=== PATIENT | male | born 1950 | race American Indian/Alaskan Native ===

== ENCOUNTER 2017-11-16 07:35 | Day surgery (SDC) | payer OTHER ==
[~2017-11-16 07:35] MED LIST: NACL 0.9% 1000 ML 1,000 ML ONE; XYLOCAINE MPF 2% ONE
[2017-11-16] MEDS ORDERED: WATER FOR IRRIG STERILE IR ONE (07:54)
[2017-11-16] MEDS ORDERED: WATER FOR IRRIG STERILE ONE (07:54)
--- NOTE | 2017-11-16 08:07 | Anesthesia Consultation ---
Anesthesia Consult and Med Hx Date of service: 11/16/17 - Airway Anesthetic Teeth Evaluation: Good ROM Head & Neck: Adequate Mental/Hyoid Distance: Adequate Mallampati Class: Class I Intubation Access Assessment: Good - Pulmonary Exam CTA: Yes - Cardiac Exam Cardiac Exam: RRR - Pre-Operative Health Status ASA Pre-Surgery Classification: ASA2 Proposed Anesthetic Plan: MAC - Pulmonary Hx Smoking: No Hx Asthma: No - Cardiovascular System Hx Hypertension: Yes - Endocrine Hx Non-Insulin Dependent Diabetes: No
--- NOTE | 2017-11-16 08:08 | Anesthesia Day of Surgery ---
Anesthesia Day of Surgery - Day of Surgery Patient Examined: Yes Patient H&P Reviewed: Yes Patient is NPO: Yes
[2017-11-16] MEDS ORDERED: NACL 0.9% 1000 ML 1,000 ML IV SCH (09:00)
[2017-11-16] MEDS ORDERED: DIPRIVAN 10 MG/ML IV ONE ×2 (09:44)
[2017-11-16] MEDS ORDERED: XYLOCAINE 2% INFILTRATI ONE (09:44)
--- NOTE | 2017-11-16 10:44 | Post Anesthesia Evaluation ---
- Post Anesthesia Evaluation Patient Participated: Yes Airway Patent: Yes Stable Respiratory Function: Yes Nausea/Vomiting: No Temp > 96.8F: Yes Pain Manageable: Yes Adequeate Hydration: Yes Anesthesia Complications: No Block Receding Appropriately: Not Applicable Patient on Ventilator: No
--- NOTE | 2017-11-16 10:46 | Operative Report ---
Operative Report Operative Report: Date of procedure: 11/16/2017 Procedure: Colonoscopy with Snare polypectomy, Multiple Hot Biopsy Polypectomies , Ablation of multiple polyps and submucosal injection. Attending physician: Brandon Donovan M.D. Director Of Accounting: Brandon Donovan M.D. Indication: Patient is a 67-year-old male who presents for screening colonoscopy. This colonoscopy serves to evaluate patient so that treatment may be directed based on the findings. Consent: Informed consent was obtained after advising the patient and family regarding nature of this procedure, its indications, potential benefits as well as possible complications including but not limited to bleeding perforation and adverse reaction to medication, infection as well as other cardiopulmonary complications. An informed written and verbal consent was then obtained after due opportunity was provided for questions and answers. Monitoring: Patient was monitored continuously with pulse oximetry and electrocardiographic recordings as well as blood pressure recordings. Vital signs remained stable throughout this procedure with no untoward events. Preoperative assessment: Patient was assessed immediately prior to this procedure for capacity to tolerate monitored anesthesia care and moderate sedation as well as general anesthesia. Patient's ASA classification is 2, Mallampati class is 2, Hyomental distance is 3. Instrument: Delivery Hero video colonoscope. Medications: Propofol given intravenously in divided doses. For details please refer to anesthesia records. Description of procedure: Patient was placed in the left lateral decubitus position after achieving sedation, a digital rectal examination was performed following which the colonoscope was introduced into the anal verge and advanced to the cecum which was identified by the cecal valve, the appendiceal orifice, as well as by the cecal strap and direct transillumination. The colonoscope was subsequently withdrawn with careful inspection of all mucosal surfaces. Patient tolerated this procedure well and was subsequently taken to the recovery room. The following findings were noted. Findings: Patient had a broad-based flat polyp seen in the cecum measuring about 1-1.5 cm. This was elevated with submucosal injection of saline and removed by snare electrocautery and retrieved. There was a 7 mm sessile polyp in the transverse colon. It was removed by hot biopsy polypectomy. A Hemoclip was placed over the defect from the polypectomy site. There was another 5-6 mm polyp in the transverse colon which again was removed by hot biopsy polypectomy and retrieved. In the descending colon, there was a 5 mm sessile polyp which was removed by hot biopsy polypectomy and retrieved. The base of the polyp was then ablated. There were a few diverticula in the sigmoid colon. There were no additional lesions seen. Patient was noted to have prominent large internal hemorrhoids seen on the retroflexed view at the anal verge. Impression: Cecal polyp status post snare polypectomy and submucosal injection Transverse colon colon polyps status post hot biopsy polypectomy and Hemoclip application. Descending colon polyp status post hot biopsy polypectomy and ablation. Diverticular disease of the sigmoid colon. Prominent internal hemorrhoids. Plan: Follow pathology report. High-fiber diet. Patient most likely will benefit from hemorrhoidal band ligation given the size of his internal hemorrhoids.
--- NOTE | 2017-11-16 10:47 | Discharge Summary ---
Short Stay Discharge Plan Activity: advance as tolerated Weight Bearing Status: Weight Bear as Tolerated Diet: regular Additional Instructions: Post Sedation D/C Instructions When you return home you may resume your regular diet unless otherwise directed. -Go directly home from the hospital and rest quietly. You may resume normal activities tomorrow. -Do NOT drive, return to work, operate any machinery or make any important personal or business decisions today . -Do NOT drink any alcohol or take nerve or sleeping drugs. They add to the effects of the medicine still present in your body. call for f/u appt. Follow up with: PRIMARY CARE [Primary Care Provider] - 7 Days
[2017-11-16 11:21] VITALS: BP 152/78
== END 2017-11-16 11:00 | disposition home or self-care (01) ==
LOC: GIO 07:35
PROVIDERS: ATTEND Internal Medicine Gastroenterology
DX: Z12.11 Encounter for screening for malignant neoplasm of colon (principal); K63.5 Polyp of colon; K57.30 Diverticulosis of large intestine without perforation or abscess without bleeding; K64.8 Other hemorrhoids; I10 Essential (primary) hypertension
CPT/HCPCS: 45381; 45384; 45385; 88305; J2704; J7030